=== PATIENT | female | born 1945 | race Two or more races ===

== ENCOUNTER 2021-10-10 07:45 | Inpatient (IN) | payer OTHER ==
[~2021-10-10] VITALS: Ht 142.2 cm; Wt 57.2 kg
[2021-10-10] MEDS ORDERED: GLUMETZA1000 MG PO (08:49)
[2021-10-10] MEDS ORDERED: COZAAR25 MG PO (08:49)
[2021-10-10] MEDS ORDERED: B COMPLEX1 EAC1 PO (08:50)
[2021-10-10] MEDS ORDERED: GLIMEPIRIDE1 M1 PO (08:51)
== END 2021-10-13 16:34 | disposition home or self-care (01) | DRG 734 ==
LOC: O/R 10-11 06:29 → SURH 10-11 07:00 → OB/GYN 10-11 11:48
PROVIDERS: ADMIT Specialist; ATTEND Specialist
PROC: 0UT9FZZ Resection of Uterus, Via Natural or Artificial Opening With Percutaneous Endoscopic Assistance (ICD-10-PCS; 2021-10-11)
PROC: 0UT7FZZ Resection of Bilateral Fallopian Tubes, Via Natural or Artificial Opening With Percutaneous Endoscopic Assistance (ICD-10-PCS; 2021-10-11)
PROC: 0UT2FZZ Resection of Bilateral Ovaries, Via Natural or Artificial Opening With Percutaneous Endoscopic Assistance (ICD-10-PCS; 2021-10-11)
PROC: 07TD4ZZ Resection of Aortic Lymphatic, Percutaneous Endoscopic Approach (ICD-10-PCS; 2021-10-11)
PROC: 0DTU4ZZ Resection of Omentum, Percutaneous Endoscopic Approach (ICD-10-PCS; 2021-10-11)
PROC: 07TC4ZZ Resection of Pelvis Lymphatic, Percutaneous Endoscopic Approach (ICD-10-PCS; principal; 2021-10-11 07:00)
DX: C54.1 Malignant neoplasm of endometrium (principal); C77.5 Secondary and unspecified malignant neoplasm of intrapelvic lymph nodes; Z20.822 Contact with and (suspected) exposure to COVID-19